=== PATIENT | male | born 1950 | race American Indian/Alaskan Native ===

== ENCOUNTER 2022-03-17 19:29 | Emergency (ER) | payer MEDICARE ==
--- NOTE | 2022-03-18 02:34 | Emergency Department Report ---
ED General Adult HPI - General Chief complaint: Extremity Problem,Nontraumatic Stated complaint: SWELLING IN FEET AND LEG Time Seen by Provider: 03/18/22 02:31 Source: patient Mode of arrival: Ambulatory Limitations: No Limitations - History of Present Illness Initial comments: 71-year-old male with a history of hypertension. States out of medications and presents for bilateral foot swelling, patient denies fall injury or trauma. Usual medication regimen includes lisinopril hydrochlorothiazide. However patient has been out of medication for the past 2 weeks. Question referral to a new primary care doctor and refill of medication. Patient denies pain there is no numbness no tingling no laceration or bleeding. There is no chest pain or shortness of breath no dizziness no lightheadedness. No nausea no vomiting. Symptoms are exacerbated by prolonged standing and walking. Symptoms are relieved by elevation and rest. Please alert chronic problem for this patient. Severity scale (0 -10): 0 - Related Data Previous Rx's Medication Instructions Recorded Last Taken Type hydroCHLOROthiazide [HCTZ] 25 mg PO QDAY #30 tablet 03/18/22 Unknown Rx lisinopriL [Lisinopril] 20 mg PO DAILY #30 tab 03/18/22 Unknown Rx Allergies Allergy/AdvReac Type Severity Reaction Status Date / Time No Known Allergies Allergy Unverified 03/17/22 20:22 ED Review of Systems ROS: Stated complaint: SWELLING IN FEET AND LEG Other details as noted in HPI Constitutional: denies: chills, fever Eyes: denies: eye pain, eye discharge, vision change ENT: denies: ear pain, throat pain Respiratory: denies: cough, shortness of breath, wheezing Cardiovascular: denies: chest pain, palpitations Endocrine: no symptoms reported Gastrointestinal: as per HPI. denies: abdominal pain, nausea, vomiting Genitourinary: denies: urgency, dysuria Musculoskeletal: other. denies: back pain, arthralgia Skin: denies: rash, lesions Neurological: denies: headache, weakness, paresthesias, vertigo Psychiatric: denies: anxiety, depression Hematological/Lymphatic: denies: easy bleeding, easy bruising ED Past Medical Hx - Past Medical History Previous Medical History?: No Hx Hypertension: Yes - Surgical History Past Surgical History?: No - Medications Home Medications: Home Medications Medication Instructions Recorded Confirmed Last Taken Type hydroCHLOROthiazide [HCTZ] 25 mg PO QDAY #30 tablet 03/18/22 Unknown Rx lisinopriL [Lisinopril] 20 mg PO DAILY #30 tab 03/18/22 Unknown Rx ED Physical Exam - General Limitations: No Limitations General appearance: alert, in no apparent distress - Head Head exam: Present: normocephalic, normal inspection - Eye Eye exam: Present: PERRL, EOMI. Absent: conjunctival injection, nystagmus Pupils: Present: normal accommodation - ENT ENT exam: Present: mucous membranes moist - Neck Neck exam: Present: normal inspection, full ROM. Absent: tenderness - Respiratory Respiratory exam: Present: normal lung sounds bilaterally. Absent: respiratory distress, wheezes, stridor, chest wall tenderness - Cardiovascular Cardiovascular Exam: Present: regular rate, normal rhythm, normal heart sounds. Absent: systolic murmur, diastolic murmur, rubs, gallop - GI/Abdominal GI/Abdominal exam: Present: soft, normal bowel sounds. Absent: distended, tenderness, guarding, rebound, rigid, bruit, hernia - Rectal Rectal exam: Present: deferred - Extremities Exam Extremities exam: Present: full ROM, other (Bilateral foot swelling +1 bilateral feet and ankles. There is no calf tenderness distal pulses are intact +2 BAG[place] PORTER is less than 3 seconds.) - Back Exam Back exam: Present: normal inspection, full ROM. Absent: CVA tenderness (R), CVA tenderness (L) - Neurological Exam Neurological exam: Present: alert, oriented X3, CN II-XII intact, normal gait, reflexes normal. Absent: motor sensory deficit - Expanded Neurological Exam Expanded Patient oriented to: Present: person, place, time Speech: Present: fluid speech Motor strength exam: RUE: 5, LUE: 5, RLE: 5, LLE: 5 Best Eye Response ([place]): (4) open spontaneously Best Motor Response ([place]): (6) obeys commands Best Verbal Response ([place]): (5) oriented [place] Total: 15 - Psychiatric Psychiatric exam: Present: normal affect, normal mood - Skin Skin exam: Present: warm, dry, intact, normal color. Absent: rash ED Course Vital Signs 03/17/22 20:21 Temperature 98.4 F Pulse Rate 89 Respiratory 18 Rate Blood Pressure 153/99 [Right] O2 Sat by Pulse 99 Oximetry ED Medical Decision Making - Medical Decision Making Patient declines further work-up tonight states he just wants medications and follow-up with primary care doctor. Patient appears well nontoxic well-hydrated well-nourished. Lower extremity swelling is to ankles and bilateral feet. Distal pulses are intact [place]TER is less than 3 seconds bilateral strength is 5 5 patient is amatory with steady gait. Lungs are clear throughout there is no chest pain normal heart sounds plan refill lisinopril and hydrochlorothiazide short term. Follow-up primary care doctor in 1 to 2 days. Patient verbalized agreement understanding with discharge plan. Patient DC'd home in stable condition at this time. Critical care attestation.: If time is entered above; I have spent that time in minutes in the direct care of this critically ill patient, excluding procedure time. ED Disposition Clinical Impression: Peripheral edema Disposition: 01 HOME / SELF CARE / HOMELESS Is pt being admited?: No Does the pt Need Aspirin: No Condition: Stable Instructions: Peripheral Edema, Edema, [id number] Additional Instructions: Take medications as prescribed, follow-up with your doctor in 1 to 2 days. Return to emergency department should symptoms worsen. Prescriptions: hydroCHLOROthiazide [HCTZ] 25 mg PO QDAY #30 tablet lisinopriL [Lisinopril] 20 mg PO DAILY #30 tab Referrals: TATIANA CHERRY MD [Staff Physician] - 3-5 Days Forms: Work/School Release Form(ED) Time of Disposition: 02:39
[2022-03-18 02:55] VITALS: BP 150/98
== END 2022-03-18 02:54 | disposition home or self-care (01) ==
LOC: ED 19:29
DX: R60.0 Localized edema (principal); I10 Essential (primary) hypertension
CPT/HCPCS: 99282